=== PATIENT | male | born 2005 | race Caucasian/White ===

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

== ENCOUNTER 2025-07-02 22:26 | Emergency (ER) | payer OTHER, SELFPAY ==
--- OUTSIDE RECORDS SUMMARY | 2020-07-05 07:15 | XMS_ITS | Continuity of Care Document ---
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 GLUCOSE BLOOD QUANT Advance Directives Directive Yes / No Effective Date File Name No Information Encounters Encounter Description Practice Location Reason(s) For Visit Diagnoses Date Provider Providers Copied on Encounter OFFICE/OUTPA TIENT VISIT [facility], [address], [place], [place], [id number], [place] tel:[phone] [facility] fatigue (chief complaint) joint pain (chief complaint) Body mass index (BMI) 21.0-21.9, adultSeizure disorderAnxiety disorder, unspecifiedDepres sionPrediabetesPa in in right kneePain in left knee 0 Kiera Brennan. [address] [place] [address], [id number] , [place]. tel:[phone] Referring Provider: Mika Qureshi, [address] [place] [address], [id number]. tel:[phone] OFFICE/OUTPA TIENT VISIT [facility], [address], [place], [place], [id number], [place] tel:[phone] [facility] diabetes (chief complaint) ADHDDepressionAnx iety disorder, unspecifiedInsomn iaGlobal developmental delayMyopia, bilateralFatigueS eizure disorderWell child check w/o abnormal findingEssential (primary) hypertensionPredi abetesEncounter for STD screeningBody mass index (BMI) 19 or less, adult 0 Kiera Brennan. [address] [place] [address], [id number] , [place]. tel: [phone] Referring Provider: Mika Qureshi, [address] [place] [address], [id number]. tel:[phone] Family History Family Member Type Diagnosis Age At Onset No Information Payers Payer name Insurance type Covered green party ID Authoriza tisouleymane(s) [facility] [id number] Social History Type Description Quantity Date Captured Comments Alcohol Use Details Unknown Caffeine Use Details Unknown Tobacco Use Status Current non-smoker 20 Smoking Status Never smoker Non-Smoking Tobacco Use Details : No Details Available : No Details Available Sex Male Vital Signs Date / Time: Height Weight BMI Pulse Rate Blood Pressure Temperature Respiratory Rate Body Surface Area Head Circumference BMI percentile Pulse Ox Inhaled Ox 3:25 PM 71.00 in 154.60 lbs 21.5 6 kg/m eter (2) 78 /min 113/75 mm[Hg] 98.60 F 18 /min 64 98 21 Chief Complaint And Reason For Visit From encounter dated '07/05/2020 12:15'. fatigue (chief complaint). Description: This is a follow up visit. The symptom(s) began gradually. The symptoms have remained unchanged. The fatigue occurs intermittently. The patient does not present with abdominal pain, back pain, cough, fatigue, fever, headache, lymphadenopathy, muscle weakness,nausea, rash, vomiting or weight loss. The patient denies any change in appetite, chills, change insleep cycle, constipation, diaphoresis, diarrhea, dyspnea, flank pain, generalized weakness, heartburn, hematemesis, hematochezia, hoarseness, increased abdominal girth, jaundice, lightheadedness, loss of interest, malaise, melena, myalgia, pallor, pruritus and weight gain. joint pain (chief complaint). Description: Onset: gradual. Duration: varies. Severity level is mild-moderate. It occurs intermittently and is stable. Location: bilateral knee (medial). There is no radiation. The pain is aching and throbbing. The pain is aggravated by bending. Pertinent negatives include bruising, crepitus, decreased mobility, difficulty initiating sleep, joint instability, joint tenderness, limping, locking, nocturnal awakening, nocturnal pain, numbness, popping, spasms, swelling, tingling in the arms, tingling in the legs and weakness. Plan Of Treatment Date Type Action Status Goal Weight-reducing diet educati on completed Goal Dietary management education , guidance, and counseling completed Referral Ordered: Ophthalmology (related to Myopia, bilateral) ordered Referral Ordered: Referrals: Ophthalmology. Evaluate and treat ordered History Of Present Illness Encounter Date Complaint History Of Prese nt Illness fatigue This is a follow up visit. The symptom(s) began gradually. The symptoms have remained unchanged. The fatigue occurs intermittently. The patient does not present with abdominal pain, back pain, cough, fatigue, fever, headache, lymphadenopathy, muscle weakness, nausea, rash, vomiting or weight loss. The patient denies any change in appetite, chills, change in sleep cycle, constipation, diaphoresis, diarrhea, dyspnea, flank pain, generalized weakness, heartburn, hematemesis, hematochezia, hoarseness, increased abdominal girth, jaundice, lightheadedness, loss of interest, malaise, melena, myalgia, pallor, pruritus and weight gain. joint pain Onset: gradual. Duration: varies. Severity level is mild-moderate. It occurs intermittently and is stable. Location: bilateral knee (medial). There is no radiation. The pain is aching and throbbing. The pain is aggravated by bending. Pertinent negatives include bruising, crepitus, decreased mobility, difficulty initiating sleep, joint instability, joint tenderness, limping, locking, nocturnal awakening, nocturnal pain, numbness, popping, spasms, swelling, tingling in the arms, tingling in the legs and weakness. diabetes Patient is compl iant with using medication, follow-up, and using education materials. He Has been managed with oral medications. Pertinent negatives include blurred vision, burning of extremities, chest pain, constant hunger, dental disease, diarrhea, dysesthesias, dyspnea, erectile dysfunction, foot ulcers, frequent infections, urinary frequency, heartburn, hypoglycemic episodes, impotence, increased fatigue, nocturia, polydipsia, slow healing wounds / sores, weight gain and weight loss. Instructions Date Instruction Additional Infor mation Weight-reducing diet education R elated to Body mass index (BMI) 21.0-21.9, adult Recommendation to exercise Relat ed to Body mass index (BMI) 21.0-21.9, adult will check labs Related to Encou nter for STD screening take meds as instructed Related to Encounter for STD screening eat a balanced diet Related to P rediabetes Follow a low sodium diet. Relate d to Essential (primary) hypertension Monitor BP Related to Essen tial (primary) hypertension Increase activity. Related to Es sential (primary) hypertension will check labs Related to Well child check w/o abnormal finding Take medications as instructed. Related to Seizure disorder will check labs Related to Fatig ue use eye drops prn Related to Nasim maxi, bilateral stable Related to Globa l developmental delay takes meds as directed Related t o Insomnia take meds as directed Related to Anxiety disorder, unspecified take meds as directed Related to Depression takes meds as directed Related t o ADHD Dietary management e ducation, guidance, and counseling Related to Body mass index (BMI) 19.9 or less, adult Giving encouragement to exercise Related to Body mass index (BMI) 19.9 or less, adult Assessments Type Assessment Date assessment Body mass index (BMI) 21.0-21.9, adult assessment Seizure disorder assessment Anxiety disorder, unspecified Au assessment Depression assessment Prediabetes assessment Pain in right knee assessment Pain in left knee impression Take meds as directed 0 impression Take meds as directed 0 impression Take meds as directed 0 impression Pt instructed on s/s x of hypoglycemia: shaky, fast heartbeat, sweaty, dizzy, hungry, anxious, weak or tired, nervous or upset Hyperglycemia: very thirsty, needing to pass urine more than usual, very hungry, sleepy, blurry vision, infections or injuries healing more slowly than usualDiscussed importance of daily blood glucose monitoring and medication complianceADA [id number] and daily blood sugar goalsReg monitoring of feet- check feet daily for signs of injuries, cuts, blisters, cracks, dry skin and swellingtake meds as directed impression use relaxation techniquestake me ds as directed impression Take meds as directed 0
[2025-07-02 22:59] VITALS: BP 125/85; PULSE 70; RESP 16; TEMP 36.3; O2SAT 97; BMI 34.4
--- NOTE | 2025-07-02 23:21 | CRLHL7_ITS ---
For Patients: As a result of the Century Cures Act, medical imaging exams and procedure reports are released immediately into your electronic medical record. You may view this report before your referring provider. If you have questions, please contact your health care provider. INDICATION: Nonsurgical ankle fracture 2 months ago, worsening pain now TECHNIQUE: Ankle radiograph 3 views right COMPARISON: 06/15/2025 FINDINGS: Bone: There is a transverse nondisplaced fracture of the lateral malleolus present with the proximal fracture margin corticated and likely due to nonunion. Joint: The ankle mortise joint and the visualized hindfoot joints are unremarkable in appearance. No significant ankle effusion is seen. Soft tissue: The Kager fat pad and the Achilles` tendon are normal in appearance. No radiopaque foreign bodies are seen. IMPRESSION: 1. There is a transverse nondisplaced fracture of the lateral malleolus present with the proximal fracture margin corticated and likely due to nonunion. Dictated by José Marrufo MD @ 07/03/2025 12:15:25 AM Dictated by: José Marrufo MD @ 07/03/2025 00:15:30 (Electronically Signed)
--- NOTE | 2025-07-02 23:32 | ED.LOWEXIN ---
HPI - Extremity Injury (Lower) General Date Seen: 07/02/25 <Ba John - Last Filed: 07/04/25 08:05> Chief Complaint: Extremity Pain/Injury, Lower <Ba John - Last Filed: 07/04/25 08:05> Stated Complaint: R foot <Ba John - Last Filed: 07/04/25 08:05> Time Seen by Provider: 07/02/25 22:30 <Ba John DO - Last Filed: 07/04/25 08:05> Source: patient <Ba John - Last Filed: 07/04/25 08:05> Mode of arrival: ambulatory <Ba John - Last Filed: 07/04/25 08:05> Limitations: no limitations <Ba John - Last Filed: 07/04/25 08:05> History of Present Illness HPI Narrative: Patient is a 19-year-old male presenting for right ankle pain. He states in the beginning of April he broke his right ankle. It was nonsurgical in he spent 3 weeks in a boot is 3 weeks in a brace. Was seen at [facility]. States he felt too weak still times doing well but today he has been having increasing pain. Has pain with ambulation to the right ankle. Has pain with weight-bearing. States is the 1st time he has been having this much ankle pain since the injury. He is concerned he might have injured the ankle again. Denies any numbness to the ankle. No other concerns noted <Ba John - Last Filed: 07/04/25 08:05> Related Data Home Medications: Home Medications ?Medication ?Instructions ?Recorded ?Confirmed oxcarbazepine 300 mg tablet 300 mg PO BID 12/13/22 12/21/22 aripiprazole 20 mg tablet 20 mg PO DAILY 07/02/25 07/02/25 hydroxyzine HCl 25 mg tablet 50 mg PO QPM 07/02/25 07/02/25 <Ba John DO - Last Filed: 07/04/25 08:05> Allergies/Adverse Reactions: Allergies Allergy/AdvReac Type Severity Reaction Status Date / Time No Known Drug Allergies Allergy Verified 07/02/25 22:57 <Ba John DO - Last Filed: 07/04/25 08:05> Review of Systems Narrative: Pertinent systems reviewed and were negative unless stated in HPI <Ba John DO - Last Filed: 07/04/25 08:05> [facility] Medical History: Medical History (Updated 07/03/25 @ 00:10 by Ba John DO) Knee pain ?M25.569 - Pain in unspecified knee (ICD-10) Epilepsy ?G40.909 - Epilepsy, unspecified, not intractable, without status epilepticus (ICD-10) PTSD (post-traumatic stress disorder) ?F43.10 - Post-traumatic stress disorder, unspecified (ICD-10) <Ba John DO - Last Filed: 07/04/25 08:05> Surgical History: Surgical History (Updated 12/21/22 @ 08:42 by Demetrice Colbert ~ [employer], [employer]ING [employer]) H/O hand surgery ?Z98.890 - Other specified postprocedural states (ICD-10) History of epilepsy ?Z86.69 - Personal history of other diseases of the nervous system and sense organs (ICD-10) <Ba John DO - Last Filed: 07/04/25 08:05> Social History: Social History Smoking Status: Former smoker Do you use any of these nicotine containing products: None Second hand tobacco smoke exposure: No How often do you have a drink containing alcohol: never How often do you have six or more drinks on one occasion: Never AUDIT-C Alcohol total score: 0 Non-prescribed substance use: denies use service: No <Ba John DO - Last Filed: 07/04/25 08:05> Exam Narrative: Exam Narrative: Const: Well-nourished, Well-developed, in mild distress Eyes: PERRL, no conjunctival injection, and symmetrical lids HENT: Atraumatic external nose and ears. Moist mucous membranes. MSK:Extremities w/o deformity, tenderness to palpation superior aspect of the medial and lateral malleoli Skin: Warm, Dry. No rashes or lesions. Neuro: Normal Muscle tone, No focal neurological deficits. Psych: Awake, Alert, & Oriented x3. Appropriate mood and affect. <Ba John DO - Last Filed: 07/04/25 08:05> Const: Vital Signs, click to edit/add: Vital Signs - 24 hr 07/02/25 22:59 Temperature 97.4 F L Pulse Rate [Pulse Oximeter] 70 Respiratory Rate 16 Blood Pressure [Ri ght Upper Arm] 125/85 Pulse Oximetry 97 Oxygen Delivery Me thod Room Air <Ba John, DO - Last Filed: 07/04/25 08:05> Vital Signs, click to edit/add: Vital Signs - 24 hr 07/02/25 22:59 Temperature 97.4 F L Pulse Rate [Pulse Oximeter] 70 Respiratory Rate 16 Blood Pressure [Ri ght Upper Arm] 125/85 Pulse Oximetry 97 Oxygen Delivery Me thod Room Air <Rey Putnam MD - Last Filed: 07/03/25 00:46> Course Course ED Course: 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 Orthopedic follow-up is recommended. <Rey Putnam MD - Last Filed: 07/03/25 00:46> Vital Signs Vital signs: Initial Vital Signs Temperature 97.4 F L 07/02/25 22:59 Temperature Source Temporal Artery Scan 07/02/25 22:59 Pulse Rate 70 07/02/25 22:59 Respiratory Rate 16 07/02/25 22:59 Blood Pressure 125/85 07/02/25 22:59 Blood Pressure Mean 98 07/02/25 22:59 Blood Pressure Position Sitting 07/02/25 22:59 Pulse Oximetry 97 07/02/25 22:59 Oxygen Delivery Method Room Air 07/02/25 22:59 Vital Signs Temperature 97.4 F L 07/02/25 22:59 Pulse Rate 70 07/02/25 22:59 Respiratory Rate 16 07/02/25 22:59 Blood Pressure 125/85 07/02/25 22:59 Pulse Oximetry 97 07/02/25 22:59 Oxygen Delivery Method Room Air 07/02/25 22:59 Temperature 97.4 F L 07/02/25 22:59 Pulse Rate 70 07/02/25 22:59 Respiratory Rate 16 07/02/25 22:59 Blood Pressure 125/85 07/02/25 22:59 Pulse Oximetry 97 07/02/25 22:59 Oxygen Delivery Method Room Air 07/02/25 22:59 <Ba John DO - Last Filed: 07/04/25 08:05> Initial Vital Signs Temperature 97.4 F L 07/02/25 22:59 Temperature Source Temporal Artery Scan 07/02/25 22:59 Pulse Rate 70 07/02/25 22:59 Respiratory Rate 16 07/02/25 22:59 Blood Pressure 125/85 07/02/25 22:59 Blood Pressure Mean 98 07/02/25 22:59 Blood Pressure Position Sitting 07/02/25 22:59 Pulse Oximetry 97 07/02/25 22:59 Oxygen Delivery Method Room Air 07/02/25 22:59 Vital Signs Temperature 97.4 F L 07/02/25 22:59 Pulse Rate 70 07/02/25 22:59 Respiratory Rate 16 07/02/25 22:59 Blood Pressure 125/85 07/02/25 22:59 Pulse Oximetry 97 07/02/25 22:59 Oxygen Delivery Method Room Air 07/02/25 22:59 Temperature 97.4 F L 07/02/25 22:59 Pulse Rate 70 07/02/25 22:59 Respiratory Rate 16 07/02/25 22:59 Blood Pressure 125/85 07/02/25 22:59 Pulse Oximetry 97 07/02/25 22:59 Oxygen Delivery Method Room Air 07/02/25 22:59 <Rey Putnam MD - Last Filed: 07/03/25 00:46> Medications Administered Medications: Discontinued Medications Generic Name Dose Route Start Last Admin Trade Name Freq PRN Reason Stop Dose Admin Ketorolac Tromethamine 30 mg 07/02/25 23:22 07/02/25 23:30 Ketorolac 30 Mg/Ml Inj IM 07/02/25 23:23 30 mg ONCE ONE Administration <Ba John DO - Last Filed: 07/04/25 08:05> Discontinued Medications Generic Name Dose Route Start Last Admin Trade Name Freq PRN Reason Stop Dose Admin Ketorolac Tromethamine 30 mg 07/02/25 23:22 07/02/25 23:30 Ketorolac 30 Mg/Ml Inj IM 07/02/25 23:23 30 mg ONCE ONE Administration <Rey Putnam MD - Last Filed: 07/03/25 00:46> MDM - Extremity Injury (Lower) MDM Narrative Medical decision making narrative: Patient is a 19-year-old male presenting for right ankle pain. He injured it 2 weeks ago after he ordered previously fractured 2 months ago but no other acute injuries. Pain started this afternoon. Is not showing any signs of gout or septic arthritis. Will re x-ray the ankle to look for new injury. I do not see any acute fractures on my exam. 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 Will wait for final read. Patient signed out to overnight provider. He is feeling much better after the Toradol and Toradol was prescribed via instymeds. <Ba John DO - Last Filed: 07/04/25 08:05> Discharge Plan Discharge Clinical Impression: Ankle pain, right Qualifiers: Chronicity: acute Qualified Code(s): M25.571 - Pain in right ankle and joints of right foot <Ba John DO - Last Filed: 07/04/25 08:05> Patient Disposition: Home, Self-Care <Ba John DO - Last Filed: 07/04/25 08:05> Condition: Stable <Ba John DO - Last Filed: 07/04/25 08:05> Instructions: Arthralgia (ED) <Ba John DO - Last Filed: 07/04/25 08:05> Additional Instructions: Take Tylenol and ibuprofen for pain. Recommend close follow-up with the orthopedic provider. Return to emergency department for new or worsening symptoms. When using the Toradol do not take other NSAIDs, for example naproxen or ibuprofen. You can use Tylenol though as it is a different class of drugs. <Ba John DO - Last Filed: 07/04/25 08:05> Prescriptions: No Action oxcarbazepine 300 mg tablet 300 mg PO BID hydroxyzine HCl 25 mg tablet 50 mg PO QPM aripiprazole 20 mg tablet 20 mg PO DAILY <Ba John DO - Last Filed: 07/04/25 08:05> Follow Up/Referrals: Provider,Not a Local [Primary Care Provider, Family Practice] <Ba John DO - Last Filed: 07/04/25 08:05> Stand Alone Forms: MyHealth Info Instructions <Ba John, DO - Last Filed: 07/04/25 08:05>
== END 2025-07-03 00:46 | disposition home or self-care (01) ==
PROVIDERS: Emergency Provider Student in an Organized Health Care Education/Training Program
DX: M25.571 Pain in right ankle and joints of right foot (principal)
CPT/HCPCS: 73610; 96372; 99283; J1885